=== PATIENT | male | born 1995 | race Two or more races ===

== ENCOUNTER 2017-11-04 11:51 | Emergency (ER) | payer MEDICAID ==
[~2017-11-04] VITALS: Ht 167.6 cm; Wt 59.0 kg
[2017-11-04] MEDS ORDERED: Norco 5mg/325mg tab ORAL ONE (12:30)
--- NOTE | 2017-11-04 13:29 | Emergency Room Report ---
History of Present Illness General Chief Complaint: Lower Extremity Injury Source: Patient Present Illness HPI 22-year-old male presents to the emergency department complaining of 10 out of 10 in severity localized pain to the right anterior beckford and right ankle status post kicked by someone wearing cleats while playing soccer. Patient reports abrasion to the anterior right beckford he reports pain is exacerbated upon weight- bearing. Injury occurred 2 days ago. reports UTD with tetanus. Denies previous injury to the affected extremity. Denies numbness tingling or loss of sensation or gross motor movements of the extremities, incontinence of bowel or bladder. Denies CP, Palpitations, LOC, AMS, dizziness, Changes in Vision, weakness or a sudden severe headache. Allergies: Coded Allergies: No Known Allergies (Unverified , 11/04/17) Patient History Past Medical History: see triage record Past Surgical History: none Pertinent Family History: none Immunizations: UTD Reviewed Nursing Documentation: PMH: Agreed; PSxH: Agreed Nursing Documentation-PMH Past Medical History: No Stated History Review of Systems All Other Systems: negative except mentioned in HPI Physical Exam Vital Signs Date Time Temp Pulse Resp B/P (MAP) Pulse Ox O2 Delivery O2 Flow Rate FiO2 11/04/17 12:18 98.3 66 18 112/69 98 Room Air 98.2 Sp02 EP Interpretation: reviewed, normal General Appearance: alert, GCS 15, non-toxic, mild distress Head: normocephalic, atraumatic Eyes: bilateral eye normal inspection, bilateral eye PERRL ENT: hearing grossly normal, normal voice Neck: full range of motion Respiratory: lungs clear, normal breath sounds, speaking full sentences Cardiovascular #1: regular rate, rhythm, normal capillary refill Musculoskeletal: back normal, normal range of motion, swelling - right calf, tender - right calf and right ankle Neurologic: alert, oriented x3, responsive, motor strength/tone normal, sensory intact, speech normal, grossly normal Psychiatric: judgement/insight normal Skin: normal color, no rash, warm/dry, well hydrated, abrasions - anterior right beckford Medical Decision Making PA Attestation Dr. ba is my supervising Physician whom patient management has been discussed with. Diagnostic Impression: Primary Impression: Fibula fracture Qualified Codes: S82.421A - Displaced transverse fracture of shaft of right fibula, initial encounter for closed fracture ER Course 22-year-old male presents to the emergency department complaining of 10 out of 10 in severity localized pain to the right anterior beckford and right ankle status post kicked by someone wearing cleats while playing soccer. Patient reports abrasion to the anterior right beckford he reports pain is exacerbated upon weight- bearing. Injury occurred 2 days ago. reports UTD with tetanus. Denies previous injury to the affected extremity. Denies numbness tingling or loss of sensation or gross motor movements of the extremities, incontinence of bowel or bladder. Denies CP, Palpitations, LOC, AMS, dizziness, Changes in Vision, weakness or a sudden severe headache. Ddx considered but are not limited to Fracture, dislocation, contusion, Sprain/ Strain/Spasm, Epidural abscess, Neoplastic mets. Vital signs: are WNL, pt. is afebrile H&PE are most consistent with musculoskeletal injury will perform imaging to r/ o fractures/dislocations. ORDERS: - X-ray right tib-fib, right ankle reviews each- positive for fibular shaft fracture nondisplaced, no Dislocation, or significant soft tissue injury, per preliminary read in ED, and signed by WALLY Perdue, my supervising physician has reviewed, and agrees with my interpretation. ED INTERVENTIONS: -[place] -Short leg posterior splint applied by ground water technician. Pt. remains neurovascularly intact. -Patient is provided with crutches and instructed on their use DISCHARGE: At this time pt. is stable for d/c to home. Will provide printed patient care instructions, and any necessary prescriptions. Care plan and follow up instructions have been discussed with the patient prior to discharge. Other X-Ray Diagnostic Results Other X-Ray Diagnostic Results #1: X-Ray ordered: Right Tib/Fib # of Views/Limited Vs Complete: 3 View Indication: Pain EP Interpretation: Yes WALLY Xray: Interpretation reviewed, by supervising MD, and agrees with findings. Interpretation: no dislocation, no soft tissue swelling, other - positive for fibular shaft fracture nondisplaced Impression: Other - abnormal Electronically Signed by: Inga Perdue PA-C Other X-Ray Diagnostic Results #2: X-Ray ordered: Right ankle # of Views/Limited Vs Complete: 3 View Indication: Pain EP Interpretation: Yes WALLY Xray: Interpretation reviewed, by supervising MD, and agrees with findings. Interpretation: no dislocation, no soft tissue swelling, no fractures Impression: No acute disease Electronically Signed by: Inga Perdue PA-C Last Vital Signs Date Time Temp Pulse Resp B/P (MAP) Pulse Ox O2 Delivery O2 Flow Rate FiO2 11/04/17 12:18 98.3 66 18 112/69 98 Room Air 98.2 Disposition: HOME, SELF-CARE Condition: Stable Scripts Ibuprofen* (MOTRIN*) 600 Mg Tablet 600 MG ORAL THREE TIMES A DAY, #30 TAB 0 Refills Prov: Inga Perdue 11/04/17 Hydrocodone Bit/Acetaminophen 5-325* (NORCO 5-325*) 1 Each Tablet 1 TAB ORAL Q6H PRN for For Pain, #10 TAB 0 Refills Prov: Inga Perdue 11/04/17 Referrals: [facility],REFERRING (PCP) Patient Instructions: Fibular Fracture With Rehab-SportsMed Additional Instructions: Take medications as directed. Follow up with an EARLY MORNING in 3-5 days, even if your symptoms have resolved. If symptoms persist MRI may be required at the discretion of your PCP or Ortho Specialist. --Please review list of primary care clinics, if you do not already have a primary care provider who can give you an Orthopedic Referral. Return sooner to ED if new symptoms occur, or current symptoms become worse. Do not drink alcohol, drive, or operate heavy machinery while taking [place] as this may cause drowsiness. - Please note that this Emergency Department Report was dictated using [employer] advising director technology software, occasionally this can lead to erroneous entry secondary to interpretation by the dictation equipment. Inga Perdue Nov 04, 2017 13:29
[2017-11-04] MEDS ORDERED: IBUPROFEN600 MG ORAL (13:31)
[2017-11-04] MEDS ORDERED: NORCO 5-325 TA1 EACH ORAL (13:31)
--- NOTE | 2017-11-04 13:41 | Diagnostic Imaging Report ---
Indication: Pain Technique: XRAY Ankle Compl Min 3v R Comparison: Correlation made to concurrent tibia/fibula radiographs Findings: Nondisplaced fracture of the midshaft of the tibia partially visualized. No ankle fracture identified. Ankle mortise intact on these nonstress views. No ankle joint effusion or significant swelling about the ankle. Imaged hindfoot grossly unremarkable. No radiopaque foreign body. IMPRESSION: Fracture of the midshaft of the tibia. No ankle fracture. Ankle mortise intact.
--- NOTE | 2017-11-04 13:43 | Diagnostic Imaging Report ---
Indication: Pain Technique: XRAY Leg Lower Tib Fib 2v R Comparison: None Findings: There is an acute fracture of the midshaft of the tibia. There is mild distraction about the fracture line without significant displacement. No additional fracture identified. Partially visualized knee and ankle joints maintained. No radiopaque foreign body. IMPRESSION: Fracture of the midshaft of the tibia
[2017-11-04 13:45] VITALS: BP 112/66
[2017-11-04 13:46] VITALS: BP 112/69
== END 2017-11-04 13:46 | disposition home or self-care (01) ==
LOC: EMR 12:30
DX: S82.421A Displaced transverse fracture of shaft of right fibula, initial encounter for closed fracture (principal); W50.1XXA Accidental kick by another person, initial encounter; Y93.66 Activity, soccer; Y92.322 Soccer field as the place of occurrence of the external cause
CPT/HCPCS: 29515; 99283